=== PATIENT | male | born 1965 | race Caucasian/White ===

== ENCOUNTER 2018-03-16 14:16 | Emergency (ER) | payer OTHER ==
[2018-03-16] MEDS ORDERED: Proparacaine 0.5% Opth 15 ML BOT ONE (14:38)
[2018-03-16] MEDS ORDERED: Fluorescein Opthalmic Strip ONE (14:46)
--- NOTE | 2018-03-16 15:48 | CT ---
CT HEAD WITHOUT CONTRAST: 03/07/18 Multiple axial tomograms obtained through the head without IV enhancement. INDICATION: Right eye and head pain. History of eye melanoma. No comparison studies. FINDINGS: Ventricles have normal size and position. No evidence of intracranial hemorrhage or mass. No evidence of infarct. There is abnormal increased density involving the right globe which could represent hemorrhage. Recom mend ophthalmologic consultation. The sinuses and mastoids are well aerated and are clear. IMPRESSION: 1. No acute intracranial abnormality. 2. Abnormal density of the right globe. Hemorrhage cannot be excluded by CT. Recommend ophthalmo logic consultation. POS: AUGUSTUS
== END 2018-03-16 16:24 | disposition home or self-care (01) ==
LOC: ERS 14:16
DX: H57.11 Ocular pain, right eye (principal)
CPT/HCPCS: 70450